=== PATIENT | female | born 1980 | race Caucasian/White ===

== ENCOUNTER → 2020-08-08 17:35 | Outpatient (CLI) | payer OTHER, SELFPAY ==
--- NOTE | ~2020-08-08 | MM_ITS ---
EXAMINATION: MM screening bernardino BI w beti HISTORY: Screening TECHNIQUE: Craniocaudal and mediolateral oblique 3-D tomosynthesis images were obtained and synthetic 2-D images were generated. CAD analysis was submitted and interpreted. COMPARISON: No prior mammogram is available for comparison at this institution. BREAST PARENCHYMAL COMPOSITION: The breasts are heterogeneously dense, which may obscure small masses . FINDINGS: There is no evidence of suspicious mass, calcification, or architectural distortion to sugg est malignancy in either breast. There has been no suspicious interval change. IMPRESSION: 1. No mammographic evidence of malignancy. 2. Recommend routine screening mammography in one year. BI-RADS Category 1: Negative Reviewed, dictated and finalized at location A.
== END ==
PROVIDERS: Visit Provider Obstetrics & Gynecology
DX: Z12.31 Encounter for screening mammogram for malignant neoplasm of breast (principal)
CPT/HCPCS: 77063; 77067

== ENCOUNTER → 2022-01-30 13:50 | Outpatient (CLI) | payer OTHER, SELFPAY ==
--- NOTE | ~2022-01-30 | MM_ITS ---
EXAMINATION: MM screening bernardino BI w beti HISTORY: Screening mammogram TECHNIQUE: Craniocaudal and mediolateral oblique 3-D tomosynthesis images were obtained and synthetic 2-D images were generated. Bilateral rotated lateral craniocaudal views. In one of the knee and gene rated. Review of the abdomen and agree is an approximately breast shows is a moderately large amount of debris ultrasound if clinically CAD analysis was submitted and interpreted. COMPARISON: 08/08/2020 bilateral screening mammogram BREAST PARENCHYMAL COMPOSITION: The breasts are heterogeneously dense, which may obscure small masses . FINDINGS: There is no evidence of suspicious mass, calcification, or architectural distortion to sugg est malignancy in either breast. There has been no suspicious interval change. IMPRESSION: 1. No mammographic evidence of malignancy. 2. Recommend routine screening mammography in one year. BI-RADS Category 1: Negative Reviewed, dictated and finalized at location A.
== END ==
PROVIDERS: PCP Family Medicine; Visit Provider Family Medicine
DX: Z12.31 Encounter for screening mammogram for malignant neoplasm of breast (principal)
CPT/HCPCS: 77063; 77067

== ENCOUNTER → 2023-03-21 10:29 | Outpatient (CLI) | payer OTHER, SELFPAY ==
--- NOTE | ~2023-03-21 | MM_ITS ---
EXAMINATION: MM screening bernardino BI w beti HISTORY: Screening mammogram TECHNIQUE: Craniocaudal and mediolateral oblique 3-D tomosynthesis images were obtained and synthetic 2-D images were generated. CAD analysis was submitted and interpreted. COMPARISON: 01/30/2022, 08/08/2020 BREAST PARENCHYMAL COMPOSITION: The breasts are heterogeneously dense, which may obscure small masses . FINDINGS: No suspicious mass, calcification, or architectural distortion are identified in either sabina ast to suggest malignancy. There has been no suspicious interval change. IMPRESSION: 1. No mammographic evidence of malignancy. 2. Recommend routine screening mammography in one year. BI-RADS Category 1: Negative Reviewed, dictated and finalized at location A.
== END ==
PROVIDERS: PCP Family Medicine; Visit Provider Advanced Practice Midwife
DX: Z12.31 Encounter for screening mammogram for malignant neoplasm of breast (principal)
CPT/HCPCS: 77063; 77067

== ENCOUNTER 2025-02-07 15:10 | Outpatient (CLI) | payer OTHER, SELFPAY ==
--- NOTE | ~2025-02-07 | MM_ITS ---
EXAMINATION: MM screening bernardino BI w beti HISTORY: Screening TECHNIQUE: Craniocaudal and mediolateral oblique 3-D tomosynthesis images were obtained and synthetic 2-D images were generated. CAD analysis was submitted and interpreted. COMPARISON: 01/30/2022 BREAST PARENCHYMAL COMPOSITION: The breasts are extremely dense, which lowers the sensitivity of mammography. FINDINGS: There is no evidence of suspicious mass, calcification, or architectural distortion to suggest malignancy in either breast. There has been no significant interval change. IMPRESSION: 1. No mammographic evidence of malignancy. Recommend routine screening mammography in one year. BI-RADS Category 1: Negative Reviewed, dictated and finalized at location Q. IMPRESSION: 1. No mammographic evidence of malignancy. Recommend routine screening mammogra phy in one year. BI-RADS Category 1: Negative
[2025-02-07 16:01] LABS: Anion Gap 10 mmol/L (4-12); Blood Urea Nitrogen 13 mg/dL (7-17); Calcium 9.7 mg/dL (8.4-10.2); Carbon Dioxide 28 mmol/L (22-30); Chloride 103 mmol/L (98-107); Estimated Glomerular Filt Rate > 60; Glucose 101 mg/dL (65-110); Osmolality Calculated 292 mOsm/kg (285-295); Potassium 4.4 mmol/L (3.4-5.0); Sodium 141 mmol/L (137-145)
[2025-02-07 16:10] LABS: NT Pro B Type Natriuretic Pept 54 pg/mL (19.9-100)
--- OUTSIDE RECORDS SUMMARY | 2025-02-07 16:32 | XMS_ITS | Encounter Summary ---
Author Organization [facility] Healthcare Address [address] [place] [address] Care Team Providers Care Statistics Tutor Name Role Phone Jairo Douglas MD Unavailable [phone] Mallika Physician Unavailable Aysha Vasquez MD Unavailable [phone] Jairo Douglas MD Primary Care Provider [phone] Rosa Mueller DPM Unavailable [phone] Reason for Visit * Reason Onset Date Comments Test Results 01/27/2025 Encounter Details Date Type Department Care Team (Late st Contact Info) Description 01/27/2025 Telephone [facility] Medical Group Primary Care at [address] [address] Jairo Douglas MD [address] [place] [address] [address] [place] [address] Test Results Social History Tobacco Use Types Packs/Day Years Used Date Smoking Tobacco: Every Day Cigarettes 0.5 25.7 Started: 1999 Smokeless Tobacco: Never Comments:stopped while pregn ant (2x) AUDIT-C Answer Date Recorded Q1: How often do you have a drink containing alcohol? 4 or more times a week 01/05/2024 Q2: How many drinks containi ng alcohol do you have on a typical day when you are drinking? 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 Dr Mueller ordered the MRI's that's why we did not receive the results. The results have been scanned into the chart for your review. Patient has been informed that the results had not been sent to us because we had not ordered the testing. Taylor mentioned that she is now having pitting edema in her left foot/ankle also. She noticed it yesterday. She stated that she went Hiking Thursday01/22/2025 and she noticed that 5 days later the edema began. There is pain, discomfort, heaviness, and feels like its weight. (Bilat feet/ankles) Denies: Leg pain, palpitations,cough, SOB, or fatigue. Does not noticed edema anywhere else on her body. She has been advised to elevate her feet and use Ice if needed. She has an appointment scheduled for 01/31/25 to see you. External Radiology and Imaging - Scan on 12/28/2024: MRI ANKLE RT WO CON External Radiology and Imaging - Scan on 12/28/2024: MRI FOOT RT WO CON * Telephone Encounter - Judy Blackwell - 01/27/2025 12:45 PM CDT Medical Question/Miscellaneous Caller???s Concern: Pt says [facility] and was asking why hasn't sheheard anything back. PAINTER TUMBLING BARREL checked chart and does not see anything received by [facility]. Pt was advised to call them and was given fax number to have results sent. Please call when received. Does message need to be routed? Yes-Action Needed documented in this encounter Plan of Treatment Not on file documented as of this encounter Visit Diagnoses Not on filedocumented in this encounter Care Teams Statistics Tutor Relationship Specialty Start Date End Date Jairo Douglas MD [address] [place] [address] PCP - General Family Medicine 10/10/24 Jairo Douglas MD [address] [place] [address] Family Medicine 04/13/24 No, Physician 06/10/21 Aysha Vasquez MD [address] [place] [address] Referring Physician Gynecology 01/13/23 Rosa Mueller DPM [id number] [place] [address] Podiatry 01/31/25 documented as of this encounter
--- OUTSIDE RECORDS SUMMARY | 2025-02-07 16:32 | XMS_ITS | Encounter Summary ---
Author Organization [facility] Healthcare Address [address] [place] [address] Care Team Providers Care Molybdenum Steamer Operator Name Role Phone Jairo Douglas MD Unavailable [phone] Mallika, Physician Unavailable Aysha Vasquez MD Unavailable [phone] Jairo Douglas MD Primary Care Provider [phone] Rosa Mueller DPM Unavailable [phone] Encounter Details Date Type Department Care Team (Late st Contact Info) Description 12/21/2024 Results Follow-Up 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 Not on file Not on file documented as of this encounter Plan of Treatment Not on file documented as of this encounter Visit Diagnoses Not on filedocumented in this encounter Care Teams Molybdenum Steamer Operator Relationship Specialty Start Date End Date Jairo Douglas MD [address] [place] [address] PCP - General Family Medicine 10/10/24 Jairo Douglas MD [address] [place] [address] Family Medicine 04/13/24 No, Physician 06/10/21 Aysha Vasquez MD [address] [place] [address] Referring Physician Gynecology 01/13/23 Rosa Mueller DPM [id number] [place] [address] Podiatry 01/31/25 documented as of this encounter
[2025-02-07 16:33] LABS: Thyroid Stimulating Hormone Reflex 1.470 uIU/mL (0.465-4.68)
--- OUTSIDE RECORDS SUMMARY | 2025-02-07 16:33 | XMS_ITS | Encounter Summary ---
Author Organization [facility] Address [facility] [place] [address] Care Team Providers Care Car Wrecker Name Role Phone Briseida Howell TECHNICAL SYSTEMS ARCHITECT Primary Care Provider [phone] Reason for Visit * Reason Onset Date Comments Record Request 02/02/2025 Encounter Details Date Type Department Care Team (Late st Contact Info) Description 02/02/2025 Telephone [facility] Medical Group Multispecialty Care [place] [address] [place], [place] [id number] Briseida Howell TECHNICAL SYSTEMS ARCHITECT [address] [place] [address] Record Request Social History Tobacco Use Types Packs/Day Years Used Date Smoking Tobacco: Some Days Cigarettes 0.5 29.7 Started: 1995 Passive Smoke Exposure: Never Smokeless Tobacco: Never Alcohol Use Standard Drinks/Week Comments Yes 0 (1 standard drink = 0.6 oz pure alcohol) daily after work - 5 nightly natural light, more on weekends PHQ-2 Answer Date Recorded Patient Health Questionnaire-2 Score 0 02/02/2025 Comments No Sex and Gender Information Value Date Recorded Sex Assigned at Female 10/04/2024 3:43 PM CDT Legal Sex Female 3:12 PM CDT Gender Identity Female 02/02/2025 9:46 AM CDT Sexual Orientation Not on file documented as of this encounter Functional Status * Over the past 2 weeks, how often have you been bothered by any of the following problems? Question Answer Date of Assessment Author Status Little interest or pleasure in doing things Not at all 02/02/2025 11:40 AM Consuelo Campos MA Act cory Feeling down, depressed, or hopeless Not at all 02/02/2025 11:40 AM Consuelo Campos MA Active Patient Health Questionnaire-2 Score 0 02/02/2025 11:40 AM Consuelo Campos MA Active * Question Answer Date of Assessment Author Status Trouble falling or staying asleep, or sleeping too much Not at all 02/02/2025 11:40 AM Consuelo Campos MA Active Feeling tired or having little energy Not at all 02/02/2025 11:40 AM Consuelo Campos MA Active Poor appetite or overeating Not at all 02/02/2025 11:40 AM Consuelo Campos MA Active Feeling bad about yourself - or that you are a failure or have let yourself or your family down Not at all 02/02/2025 11:40 AM Consuelo Campos MA Active Trouble concentrating on things, such as reading the newspaper or watching television Not at all 02/02/2025 11:40 AM Consuelo Campos MA Active Moving or speaking so slowly that other people could have noticed? Or the opposite - being so fidgety or restless that you have been moving around a lot more than usual. Not at all 02/02/2025 11:40 AM Consuelo Campos MA Active Thoughts that you would be better off or hurting yourself in some way Not at all 02/02/2025 11:40 AM Consuelo Campos MA Active Patient Health Questionnaire-9 Score 0 02/02/2025 11:40 AM Consuelo Campos MA Active * If you checked off any problems on this questionnaire so far, Question Answer Date of Assessment Author Status How difficult have these problems made it for you to do your work, take care of things at home, or get along with other people? Not difficult at all 02/02/2025 11:40 AM Consuelo Campos MA Active * Over the last 2 weeks, how often have you been bothered by any of the following problems? Question Answer Date of Assessment Author Status Feeling nervous, anxious, or on edge 0 02/02/2025 11:40 AM CDT Consuelo Robin MA Act cory Not being able to stop or control worrying 0 02/02/2025 11:40 AM CDT Consuelo Robin MA Ac tive Worrying too much about different things 0 02/02/2025 11:40 AM CDT Consuelo Robin MA Ac tive Trouble relaxing 0 02/02/2025 11:40 AM CDT Consuelo Robin MA Active Being so restless that it is hard to sit still 0 02/02/2025 11:40 AM CDT Consuelo Robin M A Active Becoming easily annoyed or irritable 0 02/02/2025 11:40 AM CDT Consuelo Robin MA Act cory Feeling afraid as if something awful might happen 0 02/02/2025 11:40 AM CDT Consuelo Robin MA Act cory CARSON-7 Total Score 0 02/02/2025 11:40 AM CDT Consuelo Robin MA Active documented as of this encounter Progress Notes * Haylee Styles MA - 02/02/2025 12:48 PM CDT I have faxed [facility] for mammogram report 02/06/25 = received last mammogram dos: 03/21/23 and sent to PCP * Haylee Styles MA - 02/02/2025 12:43 PM CDT I have faxed Dr. Vasquez for pap report 02/06/25 = received and sent to PCP documented in this encounter Plan of Treatment Upcoming Encounters Date Type Department Care Team (Late st Contact Info) Description 03/16/2025 9:40 AM CDT Office Visit [facility] Medical Group Multispecialty Care [place] [address] [place] [address] Briseida Howell, TECHNICAL SYSTEMS ARCHITECT [address] [place] [address] documented as of this encounter Visit Diagnoses Not on filedocumented in this encounter Additional Health Concerns Assessment Noted Time PHQ-9 Depression Total Score: 0 02/03/20 11:40 AM CDT documented as of this encounter Care Teams Car Wrecker Relationship Specialty Start Date End Date Briseida Howell TECHNICAL SYSTEMS ARCHITECT [address] [place] [address] PCP - General NURSE PRACTITIONER 02/02/25 documented as of this encounter
--- OUTSIDE RECORDS SUMMARY | 2025-02-07 16:33 | XMS_ITS | Clinical Summary ---
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 Active cyanocobalamin (Vitamin B-12) 500 mcg tabletIndicatio ns:Prevention of Vitamin B12 Deficiency Take 1 tablet (500 mcg total) by mouth daily Active Active Problems Problem Noted Date Diagnosed Date Contusion of right lower leg 10/10/2024 Assessment & Plan (10/10/2024 2:37 PM CDT): No signs of infection. She has discontinued bactrim. No need to restart it. Reassurance given. Picture taken and is under media. Contusion and increased swelling is sequela of injury and contusion. Continue with compression, uday wrap or ankle brace otc, ice and elevation. May take 4-6 weeks to completely resolve. Brief consult to Dr. Rivas for herring contusion. He would follow up as needed. Referral placed. Pt may wait and see. Drainage of hematoma is not necessary at this time. May continue ibuprofen for pain prn. Oral lesion 12/14/2023 Assessment & Plan (01/05/2024 12:47 PM CDT): I think she probably has a small abscess involving tooth 3. With a lesion of inflammation along the medial aspect of that tooth. I think she should go ahead and see the bottle feeder as I really did not have anything to recommend right now. I reassured her that it does not appear to be anything cancerous. If the bottle feeder has nothing to offer I would recommend that she follow-up with me. She understands. Assessment & Plan (12/14/2023 4:05 PM CDT): Nonhealing ulcer. Patient is a smoker. Will refer to Ear Nose and Throat. Lower extremity edema 09/18/2023 Assessment & Plan (09/18/2023 8:28 AM CDT): Mild. Will check CMP and urinalysis today. Recommended compression stockings. Recommended getting up from chair every hour and walking. Chronic bilateral low back pain without sciatica 09/18/2023 Assessment & Plan (09/18/2023 8:33 AM CDT): Pain is in the low back but said it was across her upper pelvic bones. We are going to get a pelvic x-ray. She may benefit from physical therapy. Patient states she has a high deductible and was hesitant to get an x-ray. I ordered the x-ray and she may get it at [facility] after working it cost. We talked about stretching and use of Advil. Bony pelvic pain 09/18/2023 Well adult exam 01/10/2022 Assessment & Plan (01/13/2023 9:15 AM CDT): A(n) yearly well adult visit has been performed today. [place] is not up to date on screening tests. She is in need of Breast cancer screening and Cholesterol screening. She is not up to date on needed preventative vaccinations; She is in need of Covid-19 (booster). We discussed healthy lifestyle habits, educational material has been given. Medications reviewed, changes documented as per the medical record and discussed with patient along with risks vs benefits. Return in 1 year Assessment & Plan (01/10/2022 5:41 PM CDT): A(n) initial well visit to establish care has been performed today. [place] is not up to date on screening tests. She is in need of Breast cancer screening, Cholesterol screening and Cervical cancer screening- ordered; referral to gyne ordered as well. She is not up to date on needed preventative vaccinations; She is in need of Tdap/Td and Pneumonia (Prevnar-13 or Pneumovax-23). Labs as ordered Discussed stretching exercises to potentially help with hip. Likely there is a source in the muscle rather than in the joint or bursa. Yoga discussed Tinea pedis 01/09/2022 Cobalamin deficiency 04/24/2020 Assessment & Plan (09/18/2023 8:24 AM CDT): History of. Will recheck B12 level today. She is currently taking oral B12 Resolved Problems Problem Noted Date Diagnosed Date Resolved Date Epistaxis 01/05/2024 10/10/2024 Assessment & Plan (01/05/2024 12:47 PM CDT): She has a deviated nasal septum to the left with a prominent vessel on it. I recommended silver nitrate cautery and she wanted to go ahead and pursue that. It was done without difficulty. I recommended that she avoid blowing her nose for a day. She could consider applying Vaseline or antibiotic ointment twice a day starting tomorrow. This will help it heal. Follow up if she has any further problems. Contact dermatitis due to plant 01/09/2022 09/18/2023 Encounters Date Type Department Care Team Description 01/31/2025 8:15 AM CDT Office Visit [facility] Primary Care at [address] [phone] Jairo Douglas MD Right ankle swelling (Primary Dx); Left ankle swelling 01/27/2025 Orders Only [facility] Primary Care at [address] [id number] Provider, MD Isiah 01/27/2025 Telephone [facility] Care at [address] [phone] Jairo Douglas MD Test Results 12/21/2024 Results Follow-Up [facility] at [address] [phone] Jairo Douglas MD Lipid panel, CBC with auto differential, Comprehensive metabolic panel, Additional followed-up results: 3 12/20/2024 12:15 PM CDT Ancillary Procedure [facility] at [address] [phone] Chronic pain of right hip 12/20/2024 11:53 AM CDT - 12/20/2024 11:59 PM CDT Hospital Encounter [address] [address] Screening, lipid; Well adult exam; Vitamin B12 deficiency Discharge Disposition: Discharge to home or self care 12/20/2024 11:45 AM CDT Lab [facility] at [address] [phone] 12/20/2024 11:00 AM CDT Office Visit [facility] at [address] [phone] Jairo Douglas MD Well adult exam (Primary Dx); Chronic pain of right hip; Screening, lipid; Screening mammogram for breast cancer; Vitamin B12 deficiency 12/01/2024 Results Follow-Up [facility] Care at [address] [phone] Jairo Douglas MD US VEIN DUPLEX LOWER EXTREMITY RIGHT LIMITED, UNILATERAL 11/30/2024 3:00 PM CDT Ancillary Procedure [facility] at [address] [place] [address] Contusion of right lower leg, subsequent encounter; 1+ pitting edema; Pain and swelling of right lower leg 11/29/2024 Telephone [facility] at [address] [place] [address] Nichelle Hendrix 11/29/2024 Nurse Triage [facility] at [address] [phone] Jairo Douglas MD Contusion of right lower leg, subsequent encounter (Primary Dx); 1+ pitting edema; Pain and swelling of right lower leg 11/29/2024 Telephone [facility] at [address] [phone] Jairo Douglas MD Recommendation Request from Last 3 Months Immunizations Immunization Administration Dates Next Due Influenza, Unspecified 05/25/2023(Deferr ed: Patient Refused),01/13/2023(Deferred: Patient Refused),05/25/2022(Deferred: Patient Refused),05/25/2021(Deferred: Patient Refused),02/22/2021(Deferred: Patient Refused),02/23/2020(Deferred: Patient Refused) Sars-CoV-2, Unspecified 10/27/2020,09/28/2020 Surgical History Surgery Date Site/Laterality Comments TONSILLECTOMY 05/25/1992 - 05/24/1993 Bilateral Medical History Medical History Date Comments Alopecia 2019 resolved Vitamin B12 deficiency Raynaud's phenomenon without gangrene Autoimmune disease Oral lesion Nosebleed Family History Medical History Relation Name Comments Aortic aneurysm Father Kidney failure Maternal Grandfather Kanu Hypertension Maternal Grandmother Inessa No Known Problems Maternal Half-Brother No Known Problems Maternal Half-Sister Hypertension Mother Sunitha Migraines Mother Sunitha low iron Mother Sunitha Congenital heart disease Mother's Sister Jenni Coronary aneurysm Neg Hx Heart failure Neg Hx Relation Name Status Comments Father Alive Maternal Grandfather Kanu Alive Maternal Grandmother Inessa Alive Maternal Half-Brother Alive Maternal Half-Sister Alive Mother Sunitha Alive Mother's Sister Jenni Alive Social History Tobacco Use Types Packs/Day Years Used Date Smoking Tobacco: Every Day Cigarettes 0.5 25.7 Started: 1999 Smokeless Tobacco: Never Tobacco Cessation:Ready to Q uit: Not Asked; Counseling Given: Not Answered Comments:stopped while (2x) AUDIT-C Answer Date Recorded Q1: How [...] 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 Not on file Not on file Obstetrics History Last Filed Vital Signs Vital Sign Reading Time Taken Comments Blood Pressure 108/64 01/31/2025 8:48 AM CDT Pulse 88 01/31/2025 8:48 AM CDT Temperature 36 C (96.8 F) 01/31/2025 8:48 AM CDT Respiratory Rate 18 01/31/2025 8:48 AM CDT Oxygen Saturation 98% 01/31/2025 8:48 AM CDT Inhaled Oxygen Concentration - - Weight 96.2 kg (212 lb) 01/31/2025 8:48 AM CDT Height 172.7 cm (5' 8) 01/31/2025 8:48 AM CDT Body Mass Index 32.23 01/31/2025 8:48 AM CDT Plan of Treatment Health Maintenance Due Date Last Done Comments Hepatitis C Screening 1980 DTaP/Tdap/Td Vaccine (1 - Tdap) 1991 Varicella Vaccines (1 of 2 - 13+ 2-dose series) 1993 Hepatitis B Screening 1998 Pneumococcal vaccine <65 (1 of 2 - PCV) 1999 HPV Vaccines (1 - 3-dose SCDM series) 2007 Covid-19 Vaccine ( season) 2025 05/10/2021, 10/27/2020, 10/27/2020, Additional history exists Influenza Vaccine (#1) 2025 Breast Cancer Screening-Mammogram 11/07/2025 01/30/2022 Postponed from 01/30/2023 (Patient declined, but will receive in the future) Regular Well Visit/Exam 18-64 12/20/2025 12/20/2024, 01/13/2023, 01/09/2022 Depression Screening 01/31/2026 01/31/2025, 12/20/2024, 10/10/2024, Additional history exists Cervical Cancer Screening 02/01/2026 02/01/2025, 12/2022 Procedures Procedure Name Priority Date/Time Associated Diagnosis Comments HM PAP SMEAR Routine 02/01/2025 9:25 AM CDT MRI ANKLE RIGHT WO CONTRAST Schedule Routine, Read Routine (OP Routine) 12/28/2024 1:41 PM CDT MRI FOOT RIGHT WO CONTRAST Schedule Routine, Read Routine (OP Routine) 12/28/2024 1:40 PM CDT XR HIP RIGHT 2 OR 3 VIEWS Schedule Routine, Read Routine (OP Routine) 12/20/2024 12:03 PM CDT Chronic pain of right hip EGFR Routine 12/20/2024 11:53 AM CDT Well adult exam DIFFERENTIAL AUTO Routine 12/20/2024 11: 53 AM CDT Well adult exam VITAMIN B12 Routine 12/20/2024 11:53 AM CDT Vitamin B12 deficiency COMPREHENSIVE METABOLIC PANEL Routine 12/20/2024 11:53 AM CDT Well adult exam CBC WITH AUTO DIFFERENTIAL Routine 12/20/2024 11:53 AM CDT Well adult exam LIPID PANEL Routine 12/20/2024 11:53 AM CDT Screening, lipid US VEIN DUPLEX LOWER EXTREMITY RIGHT LIMITED Schedule DOREEN, Read Routine (Patient lives out of area) 11/30/2024 3:39 PM CDT Contusion of right lower leg, subsequent encounter 1+ pitting edema Pain and swelling of right lower leg MAMMOGRAPHY Routine 01/30/2022 from Last 3 Months or Most Recently Relevant to Health Maintenance Results * PAP SMEAR (02/01/2025 9:25 AM CDT) SCRIBED Pap test normal Historical Provider HEALTH MAINTENANCE Final Result * MRI Ankle Right WO Contrast (12/28/2024 1:41 PM CDT) Anatomical Region Laterality Modality Lower Extremities Right Magnetic Reson ance Historical Provider IMG MRI PROCEDURES Final Result * MRI Foot Right WO Contrast (12/28/2024 1:40 PM CDT) Anatomical Region Laterality Modality Lower Extremities Right Magnetic Reson ance [facility] Provider IMG MRI PROCEDURES Final Result * XR Hip Right 2+ Vw (12/20/2024 12:03 PM CDT) Anatomical Region Laterality Modality Lower Extremities, Hip, Pelvis Right D igital Radiography 12/20/2024 9:27 PM CDT Narrative 12/20/2024 9:28 PM CDT EXAM DESCRIPTION: XR HIP RIGHT 2 OR 3 VIEWS REASON FOR STUDY: chronic hip pain Pt complains of chronic posterior lateral right hip pain. No known injury or prior surgery TECHNIQUE: There are 2 radiographic view(s) of the right hip . COMPARISON: No prior. FINDINGS: Normal mineralization. No acute fracture or dislocation. No significant arthropathy. Right sacroiliac joint and pubic symphysis appear normal. Soft tissues are unremarkable. IUD. IMPRESSION: No acute osseous abnormality. No significant arthropathy. THIS IS AN ELECTRONICALLY VERIFIED FINAL REPORT 12/20/2024 9:28 PM - Electronically signed by Delano Garzon M.D. MJ T: Report ID: [id number] Reading Location: [id number] Procedure Note Delano Garzon MD - 12/20/2024 EXAM DESCRIPTION: XR HIP RIGHT 2 OR 3 VIEWS REASON FOR STUDY: chronic hip pain Pt complains of chronic posterior lateral right hip pain. No known injuryor prior surgery TECHNIQUE: There are 2 radiographic view(s) of the right hip . COMPARISON: No prior. FINDINGS: Normal mineralization. No acute fracture or dislocation. No significant arthropathy. Right sacroiliac joint and pubic symphysisappear normal. Soft tissues are unremarkable. IUD. IMPRESSION: No acute osseous abnormality. No significant arthropathy. THIS IS AN ELECTRONICALLY VERIFIED FINAL REPORT 12/20/2024 9:28 PM - Electronically signed by Delano Garzon M.D. MJ T: Report ID: [id number] Reading Location: [id number] Jairo Douglas MD IMG XR PROCEDURES Final Res ult * eGFR (12/20/2024 11:53 AM CDT) eGFR >90 >=60 mL/min/1. 73 m2 Comment: Interpretive Data Reference Interval Normal >/= 90 mL/min/1.73m2 Mildly decreased* 60 - 89 mL/min/1.73m2 Mildly to moderately decreased 45 - 59 mL/min/1.73m2 Moderately to severely decreased 30 - 44 mL/min/1.73m2 Severely decreased 15 - 29 mL/min/1.73m2 Kidney Failure < 15 mL/min/1.73m2 *Relative to young adult level Estimated glomerular filtration rate is determined by the 2020 CKD-EPI equation recommended by the National Kidney Foundation (A Unifying Approach to GFR Estimation: Recommendations of the NKF-ASK Task Force on Reassessing the Inclusion of Race in Diagnosing Kidney Disease, JASN 202). The CKD-EPI equation should not be used for patients with unstable renal function and has not been validated in children and those over 70. Current interpretive data was last reviewed 2021. Blood 12/20/2024 11:5 3 AM CDT 12/20/2024 9:24 PM CDT us Jairo Douglas MD LAB BLOOD ORDERABLES Final Result [facility] [address] Department [place] [address] * Differential, auto (12/20/2024 11:53 AM CDT) Neutrophil abs 3.65 1.50 - 6.50 K/cumm Imm gran abs 0.02 0.00 - 0.10 K/cumm [facility] Lymphocyte abs 1.87 0.80 - 3.30 K/cumm [facility] Monocyte abs 0.55 0.20 - 0.80 K/cumm [facility] Eosinophil abs 0.28 0.00 - 0.50 K/cumm [facility] Basophil abs 0.06 0.00 - 0.10 K/cumm [facility] Neutrophil pct 56.7 % [facility] Comment: Interpretive Data Percent cell count reference ranges are not reported, since discordance with absolute values may lead to misinterpretation of CBC data. Current Interpretive Data was last revised on 2017. Imm gran pct 0.3 % [facility] Comment: Interpretive Data Percent cell count reference ranges are not reported, since discordance with absolute values may lead to misinterpretation of CBC data. Current Interpretive Data was last revised on 2017. Lymphocyte pct 29.1 % [facility] Comment: Interpretive Data Percent cell count reference ranges are not reported, since discordance with absolute values may lead to misinterpretation of CBC data. Current Interpretive Data was last revised on 2017. Monocyte pct 8.6 % [facility] Comment: Interpretive Data Percent cell count reference ranges are not reported, since discordance with absolute values may lead to misinterpretation of CBC data. Current Interpretive Data was last revised on 2017. Eosinophil pct 4.4 % [facility] Comment: Interpretive Data Percent cell count reference ranges are not reported, since discordance with absolute values may lead to misinterpretation of CBC data. Current Interpretive Data was last revised on 2017. Basophil pct 0.9 % [facility] Comment: Interpretive Data Percent cell count reference ranges are not reported, since discordance with absolute values may lead to misinterpretation of CBC data. Current Interpretive Data was last revised on 2017. Blood 12/20/2024 11:5 3 AM CDT 12/20/2024 8:33 PM CDT Jairo Douglas MD LAB BLOOD ORDERABLES Final Result Performing Organization Address City/[facility] Co de Phone Number [facility]A HOGUE [address] Department [place] [address] * (ABNORMAL) CBC with auto differential (12/20/2024 11:53 AM CDT) WBC 6.43 3.80 - 9.90 K/cumm Hgb 14.4 11.9 - 15.5 g/dL [facility] Hct 44.4 35.6 - 45.5 % [facility] Plt 392 150 - 400 K/cumm [facility] MPV 9.1 9.1 - 12.3 fL [facility] RBC 4.42 3.90 - 5.20 M/cumm [facility] MCV 100.5(H) 81.3 - 96.4 fL [facility] MCH 32.6 27.1 - 33.3 pg [facility] MCHC 32.4 32.3 - 35.7 g/dL [facility] RDW CV 12.8 11.1 - 14.9 % [facility] RDW SD 48.0 35.7 - 48.1 fL [facility] NRBC abs 0.00 0.00 - 0.01 K/cumm [facility] Blood 12/20/2024 11:5 3 AM CDT 12/20/2024 8:33 PM CDT Jairo Douglas MD LAB BLOOD ORDERABLES Final Result Performing Organization Address [facility] Co de Phone Number LAURA HOGUE [address] Department of [employer] [place], [place] [id number] * Vitamin B12 (12/20/2024 11:53 AM CDT) Vitamin B12 366 230 - 1,250 pg/mL Blood 12/20/2024 11:5 3 AM CDT 12/20/2024 8:33 PM CDT us Jairo Douglas MD LAB BLOOD ORDERABLES Final Result [facility] [address] Department [place] [address] * Lipid panel (12/20/2024 11:53 AM CDT) Cholesterol 178 30 - 199 mg/dL Comment: Interpretive Data Ages < or = 19 years Acceptable: <170 mg/dL Borderline high: 170-199 mg/dL High: >or= 200 mg/dL Ages > or = 20 years Desirable: <200 mg/dL Borderline high: 200-239 mg/dL High: >or= 240 mg/dL Literature References: 1. Expert Panel on Integrated Guidelines for Cardiovascular Health and Risk Reduction in Children and Adolescents. Pediatrics 2011;128:S213 2. NCEP Expert Panel. Circulation 2004;110:227 Current Interpretive Data was last revised on 2018. Triglycerides 130 <=149 mg/dL [facility] Comment: Interpretive Data Ages < or = 9 years Acceptable: <75 mg/dL Borderline high: 75-99 mg/dL High: >or= 100 mg/dL Ages 10 to 20 years Acceptable: <90 mg/dL Borderline high: 90-129 mg/dL High: >or= 130 mg/dL Ages > or = 20 years Desirable: <150 mg/dL Borderline high: 150-199 mg/dL High: 200-499 mg/dL Very high: >or= 499 mg/dL Literature References: 1. Expert Panel on Integrated Guidelines for Cardiovascular Health and Risk Reduction in Children and Adolescents. Pediatrics 2011;128:S213 2. NCEP Expert Panel. Circulation 2004;110:227 Current Interpretive Data was last revised on 2018. HDL 46 >=40 mg/dL [facility] Comment: Interpretive Data Ages < or = 19 years Acceptable: >45 mg/dL Borderline low: 40-45 mg/dL Low: <40 mg/dL Ages > or = 20 years Desirable: >or= 60 mg/dL Low: <40 mg/dL Literature References: 1. Expert Panel on Integrated Guidelines for Cardiovascular Health and Risk Reduction in Children and Adolescents. Pediatrics 2011;128:S213 2. NCEP Expert Panel. Circulation 2004;110:227 Current Interpretive Data was last revised on 2018. LDL, calculated 109 <=129 mg/dL [facility] Comment: Interpretive Data Ages < or = 19 years Acceptable: <110 mg/dL Borderline high: 110-129 mg/dL High: >or= 130 mg/dL Ages > or = 20 years Optimal: <100 mg/dL Near optimal: 100-129 mg/dL Borderline high: 130-159 mg/dL High: >160 mg/dL Calculated using the Nixon LDL-C estimating equation. This equation was implemented on 2024. Prior to this date LDL-C was estimated using the Friedewald equation. Literature References: 1. Expert Panel on Integrated Guidelines for Cardiovascular Health and Risk Reduction in Children and Adolescents. Pediatrics 2011;128:S213 2. NCEP Expert Panel. Circulation 2004;110:227 3. Nixon Ferguson et al. HIMANSHU Cardiol. 2019September 22;5(5):540-548. doi: 10.1001/jamacardio.2020.0013 Current Interpretive Data was last revised on 2024. Non-HDL Cholesterol 132 mg/dL [facility] Comment: Interpretive Data Ages < or = 19 years Acceptable: <120 mg/dL Borderline high: 120-144 mg/dL High: >145 mg/dL Ages > or = 20 years When triglycerides are >200 mg/dL, Non-HDL cholesterol is a secondary target of therapy with treatment goals that are 30 mg/dL greater than the LDL cholesterol target. Literature References: 1. Expert Panel on Integrated Guidelines for Cardiovascular Health and Risk Reduction in Children and Adolescents. Pediatrics 2011;128:S213 2. NCEP Expert Panel. Circulation 2004;110:227 Current Interpretive Data was last revised on 2018. Chol/HDL ratio 4 [facility] Blood 12/20/2024 11:5 3 AM CDT 12/20/2024 8:33 PM CDT Jairo Douglas MD LAB BLOOD ORDERABLES Final Result [facility] [address] Department [place] [address] * Comprehensive metabolic panel (12/20/2024 11:53 AM CDT) Sodium 138 135 - 145 mmol/L Potassium, pl 4.4 3.3 - 4.9 mmol/L [facility] Chloride 103 97 - 110 mmol/L [facility] CO2 23 22 - 32 mmol/L [facility] Anion gap 12 2 - 15 mmol/L [facility] BUN 14 6 - 25 mg/dL [facility] Creatinine 0.74 0.60 - 1.10 mg/dL [facility] Glucose 97 70 - 199 mg/dL [facility] Comment: Interpretive Data Fasting glucose >/= 126 mg/dl is diagnostic for diabetes. Fasting is defined as no caloric intake for at least 8 hours. Fasting glucose between 100 mg/dl to 125 mg/dl is diagnostic of prediabetes. In a patient with classic symptoms of hyperglycemia or hyperglycemic crisis, a random glucose >/= 200 mg/dl is diagnostic for diabetes. In the absence of unequivocal hyperglycemia, results should be confirmed by repeat testing. The classification and Diagnosis of Diabetes Diabetes Care 2021; 46: S19-S40. Current interpretive data was last revised 2022. Calcium 9.4 8.5 - 10.3 mg/dL [facility] Bilirubin, total 0.6 0.1 - 1.2 mg/dL [facility] Protein, pl 7.6 6.5 - 8.5 g/dL [facility] Albumin 4.5 3.5 - 5.0 g/dL [facility] Alk phos 90 40 - 130 Units/L [facility] ALT 32 7 - 45 Units/L [facility] AST 30 10 - 45 Units/L [facility] Blood 12/20/2024 11:5 3 AM CDT 12/20/2024 8:33 PM CDT us Jairo Douglas MD LAB BLOOD ORDERABLES Final Result Performing Organization Address City/[facility] Co de Phone Number LAURA HOGUE [address] Department [place] [address] * US VEIN DUPLEX LOWER EXTREMITY RIGHT LIMITED, UNILATERAL (11/30/2024 3:39 PM CDT) Anatomical Region Laterality Modality Vascular Right Ultrasound 11/30/2024 3:20 PM CDT Narrative 12/01/2024 10:37 AM CDT [facility] [address] [place] [address] Lower Extremity Venous Report Patient Name: TAYLOR PARK L : 1980 (44y 6m) Gender: F Study Date: 11/30/2024 03:20:15 PM Production Control Coordinator: EVELYN Location: [facility] Order Provider: JAIRO DOUGLAS Quality: Adequate Ref Provider: JAIRO DOUGLAS PROCEDURES: Vascular Report: A non-invasive vascular imaging study of the right lower extremity veins was performed using B-mode ultrasound, color flow, and spectral Doppler. INDICATIONS: Rt foot swelling since leg injury ~8 weeks ago and M79.89 Other specified soft tissue disorders. HISTORY: Current smoker. COMPARISONS: The previous exam was completed on 10/04/24 @ [facility]: neg DVT, 3.8 cm fluid collection at distal lower leg. FINDINGS: Right: Negative for deep and superficial vein thrombosis in the right lower extremity. Normal compressibility and color filling, spontaneous and phasic flow, and response to distal augmentation is demonstrated in the right common femoral vein, saphenofemoral junction, proximal femoral vein, mid femoral vein, distal femoral vein, profunda vein, popliteal vein, posterior tibial veins, peroneal veins, gastrocnemius veins and soleal veins. For comparison purposes, the left common femoral vein was interrogated. The common femoral vein Doppler flow was phasic, spontaneous and responded normally to distal augmentation. Edema noted throughout right lower extremity. Provider Notification: Results given to Dr. Douglas via secure chat at 15:38. CONCLUSIONS: 1. There is no evidence of deep vein thrombosis in the right lower extremity. ATTESTATION: I have reviewed and interpreted the pertinent images and measurements of this study. I attest to the conclusions in the final report that is provided above. Electronically Signed By: Satya Sosa MD 12/01/2024 10:03:12 AM CDT Procedure Note Satya Sosa MD - 12/01/2024 Vascular & Vein Surgery [address] [place] [id number] Lower Extremity Venous Report Patient Name: TAYLOR PARK L : 1980 (44y 6m) Gender: F Study Date: 11/30/2024 03:20:15 PM Production Control Coordinator: EVELYN Location: [facility] Order Provider: JAIRO DOUGLAS Quality: Adequate Ref Provider: JAIRO DOUGLAS PROCEDURES: Vascular Report: A non-invasive vascular imaging study of the right lowerextremity veins was performed using B-mode ultrasound, color flow, and spectral Doppler. INDICATIONS: Rt foot swelling since leg injury ~8 weeks ago and M79.89 Other specifiedsoft tissue disorders. HISTORY: Current smoker. COMPARISONS: The previous exam was completed on 10/04/24 @ [facility]: neg DVT, 3.8 cm fluidcollection at distal lower leg. FINDINGS: Right: Negative for deep and superficial vein thrombosis in the rightlower extremity. Normal compressibility and color filling, spontaneous and phasic flow, andresponse to distal augmentation is demonstrated in the right common femoral vein,saphenofemoral junction, proximal femoral vein, mid femoral vein, distal femoral vein,profunda vein, popliteal vein, posterior tibial veins, peroneal veins, gastrocnemiusveins and soleal veins. For comparison purposes, the left common femoral vein wasinterrogated. The common femoral vein Doppler flow was phasic, spontaneous and responded normallyto distal augmentation. Edema noted throughout right lower extremity. Provider Notification: Results given to Dr. Douglas via secure chat at15:38. CONCLUSIONS: 1. There is no evidence of deep vein thrombosis in the right lowerextremity. ATTESTATION: I have reviewed and interpreted the pertinent images and measurements ofthis study. I attest to the conclusions in the final report that is provided above. Electronically Signed By: Satya Sosa MD 12/01/2024 10:03:12 AM CDT Jairo Douglas MD IM US PROCEDURES Final Res ult * HM MAMMOGRAPHY (01/30/2022) Mammography Normal Historical Provider HEALTH MAINTENANCE Final Result from Last 3 Months or Most Recently Relevant to Health Maintenance Insurance [facility] AETNA SIGNATURE [facility]NA S[facility] [employer] [employer] Care Teams Ballpoint Pen Cartridge Tester Relationship Specialty Start Date End Date Jairo Douglas MD [address] [facility] [address] [place] [address] PCP - General Family Medicine 10/10/24 Jairo Douglas MD [address] [facility] [address] [place] [address] Family Medicine 04/13/24 No, Physician 06/10/21 Aysha Vasquez MD [address] [place] [address] Referring Physician Gynecology 01/13/23 Rosa Mueller DPM [address] [place] [address] Podiatry 01/31/25
--- OUTSIDE RECORDS SUMMARY | 2025-02-07 16:33 | XMS_ITS | Clinical Summary ---
Author Organization [facility] Address [facility] [place] [address] Care Team Providers Care Cp Bleacher Operator Name Role Phone Briseida Howell LEASING AGENT Primary Care Provider [phone] Allergies No known active allergies Medications vitamin B-12 (CYANOCOBALAMIN ) 500 MCG tablet Take 1 tablet (500 mcg total) by mouth daily. Active levonorgestrel (MIRENA, 52 MG,) 20 MCG/DAY IUD 1 Intra Uterine Device by Intrauterine route once. Active furosemide (LASIX) 20 MG tabletIndicatio ns:Localized edema Take 0.5 tablets (10 mg total) by mouth daily as needed. 30 tablet 1 Active Active Problems Problem Noted Date Diagnosed Date Uncomplicated alcohol dependence (CMS/FORMER[facility] HHS/HC C) 02/02/2025 Localized edema 02/02/2025 Family history of aneurysm 02/02/2025 Chewing tobacco nicotine dependence without comp lication 02/02/2025 Encounters Date Type Department Care Team Description 02/02/2025 9:40 AM CDT Office Visit [facility] [place] [address] [facility] [address] [place] [address] Briseida Howell NP New Patient 02/02/2025 [facility] [place] [address] [place] [address] Briseida Howell NP Record Request 02/02/2025 Travel 12/28/2024 4:00 PM CDT - 12/28/2024 11:59 PM CDT [facility] [address] [place] [address] Rosa Maxwell DPM Discharge Disposition: Home or Self Care (Routine Discharge) 12/28/2024 Travel from Last 3 Months Immunizations Immunization Administration Dates Next Due COVID-19 Vaccine (Generic) 10/27/2020,09/28/2020 Family History Medical History Relation Comments Aneurysm Paternal Aunt pacemaker Paternal Grandfather Relation Status Comments Paternal Aunt Paternal Grandfather Social History Tobacco Use Types Packs/Day Years Used Date Smoking Tobacco: Some Days Cigarettes 0.5 29.7 Started: 1995 Passive Smoke Exposure: Never Smokeless Tobacco: Never Tobacco Cessation:Ready to Q uit: Not Asked; Counseling Given: No Alcohol Use Standard Drinks/Week Comments Yes 0 [...] AM CDT Sexual Orientation Not on file Last Filed Vital Signs Vital Sign Reading Time Taken Comments Blood Pressure 108/75 02/02/2025 9:47 AM CDT Pulse 83 02/02/2025 9:47 AM CDT Temperature 36.7 C (98.1 F) 10/04/2024 6:30 PM CDT Respiratory Rate 16 02/02/2025 9:47 AM CDT Oxygen Saturation 97% 02/02/2025 9:47 AM CDT Inhaled Oxygen Concentration - - Weight 95.6 kg (210 lb 12.8 oz) 02/02/2025 9:47 AM CDT Height 172.7 cm (5' 8) 02/02/2025 9:47 AM CDT Body Mass Index 32.05 02/02/2025 9:47 AM CDT Plan of Treatment Upcoming Encounters Date Type Department Care Team (Late st Contact Info) Description 03/16/2025 9:40 AM CDT Office Visit [facility] [place] [address] [place] [address] Briseida Howell, LEASING AGENT [address] [place] [address] Health Maintenance Due Date Last Done Comments Cervical Cancer Screening Pa p Smear (Age 30 to 64) Every 3 Years 1980 Annual Physical 1983 Hepatitis C 1998 DTaP, Tdap and Td Vaccines ( 1 - Tdap) 1999 Hepatitis B Vaccines (1 of 3 - 19+ 3-dose series) 1999 Pneumococcal Vaccine: Pediatrics (0 to 5 Years) and At-Risk Patients (6 to 49 Years) (1 of 2 - PCV) 1999 HPV Vaccines (1 - 3-dose SCD M series) 2007 Cervical Cancer Screening Pa p with HPV Testing (Age 30 to 64) Every 5 Years 2010 Cervical Cancer Screening wi th HPV 2010 Mammogram Screening 2020 COVID-19 Vaccine (3 - 2024-2 6 season) 2025 10/27/2020, 09/28/2020 PHQ-2 (Physician Valentines) Completed 02/02/2025 Meningococcal B Vaccine Aged Out No l onger eligible based on patient's age to complete this topic Meningococcal Vaccine Aged Out No esther jolene eligible based on patient's age to complete this topic RSV Immunizations Under 20 Months Aged Out No longer eligible b ased on patient's age to complete this topic Procedures Procedure Name Priority Date/Time Associated Diagnosis Comments MRI FOOT RT WO CON Routine 12/28/2024 5: 55 PM CDT Sprain of tarsometatarsal ligament of unspecified foot, initial encounter MRI ANKLE RT WO CON Routine 12/28/2024 5:14 PM CDT Sprain of tarsometatarsal ligament of unspecified foot, initial encounter from Last 3 Months Results * MRI FOOT RT WO CON (12/28/2024 5:55 PM CDT) Anatomical Region Laterality Modality Foot Magnetic Resonan ce 01/06/2025 8:42 AM CDT Impressions 01/06/2025 9:21 AM CDT IMPRESSION: 1. Lisfranc ligamentous complex is intact. No acute finding in the ankle or foot. 2. Moderate tendinopathy of the distal peroneus brevis. 3. Diffuse soft tissue edema throughout the ankle and foot. Ordered By: ROSA MAXWELL Interpreted By: Ignacio Thibodeaux MD, 01/06/2025 8:42 AM Narrative 01/06/2025 9:21 AM CDT [facility] [address] [place] [address] EXAMINATION: MRI FOOT RT WO CON, MRI ANKLE RT WO CON DATE: 12/28/2024 4:26 PM HISTORY: 44 years Female. Sprain of tarsometatarsal ligament of unspecified foot, initial encounter. COMPARISON: Right tibia and fibula radiography 10/04/2024. TECHNIQUE: Multiplanar, multisequence MR imaging of the right foot and right ankle was performed according to routine protocol without complication. FINDINGS: Osseous structures: No acute fracture or destructive osseous lesion is identified. 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 No traumatic subluxation or dislocation is demonstrated. 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 Less pronounced osteoarthritis throughout the ankle and foot. Ligaments: The tibiofibular ligaments are intact. The talofibular and calcaneofibular ligaments are intact. Deltoid and spring ligamentous complexes are intact. The cervical and interosseous ligaments are intact. The bifurcate ligament is intact. Lisfranc ligamentous complex is intact. Tendons: Extensor, flexor, and peroneus tendons are intact without discrete fluid-filled tear. Moderate tendinopathy of the distal peroneus brevis (series 9 image 6). Small amount of fluid within the peroneus tendon sheath without evidence of tenosynovitis. The plantar fascia is normal. Diffuse skin thickening and subcutaneous fat stranding/free fluid. Procedure Note Ignacio Thibodeaux MD - 01/06/2025 [facility] [address] [place] [address] EXAMINATION: MRI FOOT RT WO CON, MRI ANKLE RT WO CON DATE: 12/28/2024 4:26 PM HISTORY: 44 years Female. Sprain of tarsometatarsal ligament ofunspecified foot, initial encounter. COMPARISON: Right tibia and fibula radiography 10/04/2024. TECHNIQUE: Multiplanar, multisequence MR imaging of the right foot andright ankle was performed according to routine protocol withoutcomplication. FINDINGS: Osseous structures: No acute fracture or destructive osseous lesion isidentified. 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 Notraumatic subluxation or dislocation is demonstrated. Moderateosteoarthritis of the first metatarsophalangeal articulation. Lesspronounced osteoarthritis throughout the ankle and foot. Ligaments: The tibiofibular ligaments are intact. The talofibular andcalcaneofibular ligaments are intact. Deltoid and spring ligamentouscomplexes are intact. The cervical and interosseous ligaments are intact.The bifurcate ligament is intact. Lisfranc ligamentous complex is intact. Tendons: Extensor, flexor, and peroneus tendons are intact withoutdiscrete fluid-filled tear. Moderate tendinopathy of the distal peroneusbrevis (series 9 image 6). Small amount of fluid within the peroneustendon sheath without evidence of tenosynovitis. The plantar fascia is normal. Diffuse skin thickening and subcutaneous fat stranding/free fluid. IMPRESSION: 1. Lisfranc ligamentous complex is intact. No acute finding in the ankleor foot. 2. Moderate tendinopathy of the distal peroneus brevis. 3. Diffuse soft tissue edema throughout the ankle and foot. Ordered By: ROSA MAXWELL Interpreted By: Ignacio Thibodeaux MD, 01/06/2025 8:42 AM Rosa Maxwell DP MRI Final Result * MRI ANKLE RT WO CON (12/28/2024 5:14 PM CDT) Anatomical Region Laterality Modality Ankle Magnetic Resonan ce 01/06/2025 8:42 AM CDT Impressions 01/06/2025 9:21 AM CDT IMPRESSION: 1. Lisfranc ligamentous complex is intact. No acute finding in the ankle or foot. 2. Moderate tendinopathy of the distal peroneus brevis. 3. Diffuse soft tissue edema throughout the ankle and foot. Ordered By: ROSA MAXWELL Interpreted By: Ignacio Thibodeaux MD, 01/06/2025 8:42 AM Narrative 01/06/2025 9:21 AM CDT [facility] [address] [place] [address] EXAMINATION: MRI FOOT RT WO CON, MRI ANKLE RT WO CON DATE: 12/28/2024 4:26 PM HISTORY: 44 years Female. Sprain of tarsometatarsal ligament of unspecified foot, initial encounter. COMPARISON: Right tibia and fibula radiography 10/04/2024. TECHNIQUE: Multiplanar, multisequence MR imaging of the right foot and right ankle was performed according to routine protocol without complication. FINDINGS: Osseous structures: No acute fracture or destructive osseous lesion is identified. 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 No traumatic subluxation or dislocation is demonstrated. 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 Less pronounced osteoarthritis throughout the ankle and foot. Ligaments: The tibiofibular ligaments are intact. The talofibular and calcaneofibular ligaments are intact. Deltoid and spring ligamentous complexes are intact. The cervical and interosseous ligaments are intact. The bifurcate ligament is intact. Lisfranc ligamentous complex is intact. Tendons: Extensor, flexor, and peroneus tendons are intact without discrete fluid-filled tear. Moderate tendinopathy of the distal peroneus brevis (series 9 image 6). Small amount of fluid within the peroneus tendon sheath without evidence of tenosynovitis. The plantar fascia is normal. Diffuse skin thickening and subcutaneous fat stranding/free fluid. Procedure Note Ignacio Thibodeaux MD - 01/06/2025 [facility] [address] [place] [id number] EXAMINATION: MRI FOOT RT WO CON, MRI ANKLE RT WO CON DATE: 12/28/2024 4:26 PM HISTORY: 44 years Female. Sprain of tarsometatarsal ligament ofunspecified foot, initial encounter. COMPARISON: Right tibia and fibula radiography 10/04/2024. TECHNIQUE: Multiplanar, multisequence MR imaging of the right foot andright ankle was performed according to routine protocol withoutcomplication. FINDINGS: Osseous structures: No acute fracture or destructive osseous lesion isidentified. 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 Notraumatic subluxation or dislocation is demonstrated. Moderateosteoarthritis of the first metatarsophalangeal articulation. Lesspronounced osteoarthritis throughout the ankle and foot. Ligaments: The tibiofibular ligaments are intact. The talofibular andcalcaneofibular ligaments are intact. Deltoid and spring ligamentouscomplexes are intact. The cervical and interosseous ligaments are intact.The bifurcate ligament is intact. Lisfranc ligamentous complex is intact. Tendons: Extensor, flexor, and peroneus tendons are intact withoutdiscrete fluid-filled tear. Moderate tendinopathy of the distal peroneusbrevis (series 9 image 6). Small amount of fluid within the peroneustendon sheath without evidence of tenosynovitis. The plantar fascia is normal. Diffuse skin thickening and subcutaneous fat stranding/free fluid. IMPRESSION: 1. Lisfranc ligamentous complex is intact. No acute finding in the ankleor foot. 2. Moderate tendinopathy of the distal peroneus brevis. 3. Diffuse soft tissue edema throughout the ankle and foot. Ordered By: ROSA MAXWELL Interpreted By: Ignacio Thibodeaux MD, 01/06/2025 8:[address] [facility] MRI Final Result from Last 3 Months Insurance [employer] Care Teams Cp Bleacher Operator Relationship Specialty Start Date End Date Briseida Howell NP [address] [facility] [address] [place] [address] PCP - General NURSE PRACTITIONER 02/02/25
[2025-02-14 03:07] LABS: Vit. B1, Whole Blood 111.4 nmol/L (66.5-200.0)
== END 2025-02-07 15:11 | disposition home or self-care (01) ==
DX: Z12.31 Encounter for screening mammogram for malignant neoplasm of breast (principal); Z11.59 Encounter for screening for other viral diseases; R60.0 Localized edema; E53.9 Vitamin B deficiency, unspecified
CPT/HCPCS: 36415; 77063; 77067; 80048; 82746; 83880; 84425; 84443; 85380; 86706; 86803